=== PATIENT | male | born 1960 | race Caucasian/White ===

== ENCOUNTER → 2020-05-01 | Outpatient (CLI) | payer OTHER ==
[2020-05-01 16:27] LABS: HCT 50.1 % (39.0-53.0); MCH 31.6 pg (25.0-35.0); MCHC 31.8 g/dL (31.0-37.0); MCV 99.3 fL (80.0-100.0); Mean Platelet Volume 7.6; Platelet Count 269 k/uL (150-450); RBC 5.05 m/uL (4.30-5.90); RDW 13.5 % (11.5-15.5); WBC 11.2 k/uL (3.8-10.6)
[2020-05-02 02:07] LABS: African American GFR (CKD) 106.5 (60.0-200.0); Anion Gap 11.1 mmol/L (4.00-12.00); Calcium 10.3 mg/dL (8.7-10.3); Carbon Dioxide 25.9 mmol/L (21.6-31.8); Non-African American GFR(CKD) 91.9 (60.0-200.0)
== END | disposition home or self-care (01) ==
LOC: LABWHC1 14:55
PROVIDERS: ATTEND Internal Medicine Cardiovascular Disease
DX: I10 Essential (primary) hypertension (principal); I48.0 Paroxysmal atrial fibrillation; F17.210 Nicotine dependence, cigarettes, uncomplicated
CPT/HCPCS: 36415; 80048; 84443; 85027

== ENCOUNTER → 2020-07-04 | Outpatient (CLI) | payer OTHER ==
[2020-07-04 08:08] LABS: HCT 49.3 % (39.0-53.0); HGB 16.4 gm/dL (13.0-17.5); Hypochromasia Slight; MCH 32.8 pg (25.0-35.0); MCHC 33.3 g/dL (31.0-37.0); MCV 98.4 fL (80.0-100.0); Mean Platelet Volume 7.6; Platelet Count 266 k/uL (150-450); Poikilocytosis Slight; RBC 5.01 m/uL (4.30-5.90); RDW 14.3 % (11.5-15.5); WBC 10.8 k/uL (3.8-10.6)
[2020-07-04 08:22] LABS: African American GFR (CKD) >90 (>60 ml/min/1.73 sqM); Anion Gap 7 mmol/L; Blood Urea Nitrogen 29 mg/dL (9-20); Carbon Dioxide 25 mmol/L (22-30); Chloride 107 mmol/L (98-107); Non-African American GFR(CKD) >90 (>60 ml/min/1.73 sqM); Potassium 4.6 mmol/L (3.5-5.1); Sodium 139 mmol/L (137-145)
== END | disposition home or self-care (01) ==
LOC: LABPAT 07:27
PROVIDERS: ATTEND Internal Medicine Cardiovascular Disease
DX: Z01.818 Encounter for other preprocedural examination (principal); I48.11 Longstanding persistent atrial fibrillation
CPT/HCPCS: 36415; 80051; 82565; 84520; 85027

== ENCOUNTER 2020-07-09 07:39 | Day surgery (SDC) | payer OTHER ==
[2020-07-05 12:11] VITALS: BMI 27.1
[~2020-07-09 07:39] MED LIST: SODIUM CHLORIDE 0.9% 1,000 ML IV SCH
[2020-07-09] MEDS ORDERED: SODIUM CHLORIDE 0.9% 500 ML 500 ML IV ONE ×2 (07:53→09:40)
[2020-07-09 08:05] LABS: Glucose,Whole Blood 112 mg/dL (75-99)
[2020-07-09] MEDS ORDERED: PROPOFOL 10 MG/ML 20 ML VIAL IV ONE ×2 (08:50→12:14)
[2020-07-09] MEDS ORDERED: IV FLUID CONTINUATION 1,000 ML IV ONE (12:27)
[2020-07-09 12:45] VITALS: TEMP 98.1
[2020-07-09 12:47] VITALS: RESP 16
[2020-07-09 14:31] VITALS: BP 121/62; PULSE 60
--- NOTE | 2020-07-11 14:48 | PCN ---
PROCEDURE NOTE TRANSESOPHAGEAL ECHO PROCEDURE NOTE: We attempted transesophageal echo using an Omniplane probe. The patient was sedated by the bottle gauger. I was unable to intubate the patient after and decided to abort the procedure and proceed with cardioversion without NISHA. JEAN CLAUDE / ULISES: [id number] /
--- NOTE | 2020-07-11 14:48 | CE ---
CARDIAC ELECTROPHYSIOLOGY REPORT CARDIOVERSION NOTE: DATE OF SERVICE: 07/09/2020 INDICATION: Persistent atrial fibrillation. After obtaining informed consent and making sure that the patient is receiving Eliquis regularly, the patient underwent electrical cardioversion. He received 200 joules of synchronized current following which he converted to sinus rhythm. The patient will be discharged home on Eliquis 5 b.i.d., atenolol, flecainide and the metformin that he was on. JEAN CLAUDE / ULISES: [id number] /
== END 2020-07-09 14:16 | disposition home or self-care (01) ==
LOC: CATHCVL 07:39
PROVIDERS: ATTEND Internal Medicine Cardiovascular Disease
DX: I48.19 Other persistent atrial fibrillation (principal); E11.9 Type 2 diabetes mellitus without complications; I10 Essential (primary) hypertension; F17.200 Nicotine dependence, unspecified, uncomplicated; Z79.84 Long term (current) use of oral hypoglycemic drugs; Z79.01 Long term (current) use of anticoagulants; Z79.82 Long term (current) use of aspirin; Z79.899 Other long term (current) drug therapy
CPT/HCPCS: 92960; J2704